=== PATIENT | female | born 1995 | race Caucasian/White ===

== ENCOUNTER 2017-08-14 00:12 | Outpatient (CLI) | payer MEDICAID | END 2017-08-14 23:59 | disposition home or self-care (01) | LOC: DIABETIC 00:12 | PROVIDERS: ATTEND Specialist | DX: E11.9 Type 2 diabetes mellitus without complications (principal) | CPT/HCPCS: G0108 ==

== ENCOUNTER 2017-09-25 03:50 | Outpatient (CLI) | payer MEDICAID | END 2017-09-25 23:59 | disposition home or self-care (01) | LOC: DIABETIC 03:50 | PROVIDERS: ATTEND Specialist | DX: E10.65 Type 1 diabetes mellitus with hyperglycemia (principal) | CPT/HCPCS: G0108 ==

== ENCOUNTER 2017-12-31 09:17 | Outpatient (CLI) | payer MEDICAID | END 2017-12-31 23:59 | disposition home or self-care (01) | LOC: DIABETIC 09:17 | PROVIDERS: ATTEND Specialist | DX: E10.9 Type 1 diabetes mellitus without complications (principal); Z79.4 Long term (current) use of insulin | CPT/HCPCS: G0108 ==

== ENCOUNTER 2018-03-31 00:31 | Outpatient (CLI) | payer BC | END 2018-03-31 23:59 | disposition home or self-care (01) | LOC: DIABETIC 00:31 | PROVIDERS: ATTEND Specialist | DX: E10.65 Type 1 diabetes mellitus with hyperglycemia (principal); Z79.899 Other long term (current) drug therapy; Z91.010 Allergy to peanuts; Z91.048 Other nonmedicinal substance allergy status; Z91.018 Allergy to other foods; Z88.8 Allergy status to other drugs, medicaments and biological substances; Z88.2 Allergy status to sulfonamides | CPT/HCPCS: G0108 ==